=== PATIENT | female | born 1975 | race Caucasian/White ===

== ENCOUNTER 2018-10-25 00:23 | Emergency (ER) | payer SELFPAY ==
[~2018-10-25] VITALS: Ht 157.5 cm; Wt 45.4 kg
[2018-10-25] MEDS ORDERED: VENTOLIN HFA18 GM INH (00:30)
[2018-10-25 00:40] VITALS: BP 141/78
[2018-10-25] MEDS ORDERED: Albuterol/Ipratropium 3ml neb HHN ONE (00:45)
[2018-10-25] MEDS ORDERED: ALBUTEROL SULF8.5 GM INH (00:57)
[2018-10-25 01:07] VITALS: BP 138/74
--- NOTE | 2018-10-25 02:17 | Emergency Room Report ---
History of Present Illness General Chief Complaint: Medical Clearance Source: Patient Present Illness HPI Patient is a 42-year-old female brought in by [facility]'s department for medical clearance. Patient reportedly had been having increased difficulty breathing. She reports having prior history of asthma. She reports having some prior history of shoulder pain. Reports having a long-standing history of asthma and states she is not been able to take her inhaler. Patient is currently in custody. Patient was noted to have some wrist pain. Allergies: Coded Allergies: No Known Allergies (Unverified , 10/25/18) Patient History Past Medical History: see triage record Last Menstrual Period: 10/17/2018 Now: No Reviewed Nursing Documentation: PMH: Agreed; PSxH: Agreed Nursing Documentation-PMH Past Medical History: No History, Except For Hx Asthma: Yes Hx Neurological Problems: Yes - anxiety Review of Systems All Other Systems: negative except mentioned in HPI Physical Exam Vital Signs Date Time Temp Pulse Resp B/P (MAP) Pulse Ox O2 Delivery O2 Flow Rate FiO2 10/25/18 00:27 97.9 120 22 141/78 97 Room Air 10/25/18 00:40 21 General Appearance: well appearing, no apparent distress, alert, GCS 15 Head: normocephalic, atraumatic ENT: hearing grossly normal, normal voice Neck: full range of motion, supple Respiratory: lungs clear, no respiratory distress, speaking full sentences Cardiovascular #1: normal inspection, no edema Neurologic: normal inspection, alert, oriented x3, normal gait Psychiatric: mood/affect normal Skin: abrasions - superficial left wrist abrasion\ Medical Decision Making Diagnostic Impression: Primary Impression: Anxiety Additional Impression: Asthma ER Course . Patient presented for medical clearance. Differential diagnosis include was not limited to asthma attack, anxiety, pneumothorax among others. Patient has a benign exam and does not appear to require any further imaging or laboratory testing at this time. Patient appears to have unremarkable lung exam. Patient was given breathing treatment due to patient's request and history of asthma. There is no evident acute deformity to her shoulder. Patient is medically cleared for booking.Patient was discharged in custody.Patient appears to be stable for discharge. Last Vital Signs Date Time Temp Pulse Resp B/P (MAP) Pulse Ox O2 Delivery O2 Flow Rate FiO2 10/25/18 01:07 97.9 98 20 138/74 99 Room Air 10/25/18 00:51 21 Status: improved Disposition: HOME, SELF-CARE Condition: Stable Scripts Albuterol Sulfate* (ALBUTEROL SULFATE MDI*) 8.5 Gm Hfa.aer.ad 2 PUFF INH Q4H PRN for cough/wheezing, #1 EA 0 Refills Prov: Paulo Robert MD 10/25/18 Departure Forms: Shelter Clearance Patient Instructions: Hyperventilation Paulo Robert MD Oct 25, 2018 02:17
== END 2018-10-25 01:07 | disposition home or self-care (01) ==
LOC: EMR 00:55
DX: F41.9 Anxiety disorder, unspecified (principal); J45.909 Unspecified asthma, uncomplicated
CPT/HCPCS: 94640; 94664; 99283; J7620